=== PATIENT | female | born 1940 | race Caucasian/White ===

== ENCOUNTER 2017-03-02 23:55 | Emergency (ER) | payer MEDICARE, OTHER ==
--- NOTE | ~2017-03-02 | ER ---
PATIENT'S NAME: YOON DOTY [facility] AGE: 76 Y [address] ROOM: [place] [address] LOCATION: ED ADMIT DATE: 03/02/2017 ER/Outpatient Report DISCHARGE DATE: 03/03/2017 FAMILY PHYSICIAN: Sherly Christianson APRN ATTENDING PHYSICIAN: Elidia Oden Time of Arrival: 2355 hours. Time Seen: 0008 hours. IDENTIFICATION: A 76-year-old female. CHIEF COMPLAINT: Pain. HISTORY OF PRESENT ILLNESS: The patient presents complaining of epigastric pain and left flank pain. She describes it as a pressure feeling that is worse with a deep breath. She has some nausea. No vomiting. No diarrhea. No constipation. Last bowel movement was earlier this evening. The pain started at 2:00 p.m., then got better and then got worse again around 9:00 p.m. No dysuria. No increased frequency of urination. PAST MEDICAL HISTORY: ALLERGIES: TO CELEBREX. CURRENT MEDICATIONS: 1. Acetaminophen 325 mg 2 tablets every 4 hours as needed. 2. Albuterol 2 times daily. 3. Alprazolam 0.25 mg t.i.d. 4. Aspirin 81 mg daily. 5. Docusate 100 mg b.i.d. 6. Ferrous sulfate 325 mg 3 times daily. 7. Guaifenesin 200 mg 2 times daily. 8. Humalog sliding scale. 9. Bystolic 5 mg half tablet daily. 10. Zoloft 50 mg daily. 11. Spiriva daily. 12. Torsemide 20 mg 2 tablets daily. 13. vitamins. 14. Atorvastatin 80 mg daily. 15. Omeprazole, which is not on her list 1 daily. PATIENT'S NAME: YOON DOTY [facility] AGE: 76 Y [address] ROOM: [place], [place] [address] LOCATION: [facility] ADMIT DATE: 03/02/2017 ER/Outpatient Report DISCHARGE DATE: 03/03/2017 FAMILY PHYSICIAN: Sherly Christianson APRN ATTENDING PHYSICIAN: Elidia Oden MEDICAL PROBLEMS: Peptic ulcer disease; diabetes mellitus, insulin requiring; COPD; heart disease; hypertension; anxiety. PRIOR SURGERIES: CABG, carotid endarterectomies, bilateral fem-pop bypass, and cholecystectomy. SOCIAL HISTORY: The patient lives in [place]. She is currently staying with her son maryjane in [facility]. Tobacco use, quit 6 years ago. Alcohol use, denies. Drug use, denies. REVIEW OF SYSTEMS: All systems reviewed and negative other than what is noted in the HPI. FAMILY HISTORY: No pertinent family history identified. PHYSICAL EXAMINATION: VITAL SIGNS: Height 5 feet 1 inch, weight 63.4 kg, blood pressure 195/101, pulse 85, respirations 24, temperature 98.7, sats 94%. Recheck blood pressure 122/76. GENERAL: A 76-year-old female, in no acute distress. Pain is 5/10 on the pain scale. HEAD: Normocephalic, atraumatic. EARS: TMs translucent, AU. EYES: Pupils equal and reactive to light and accommodation. Extraocular movements intact. NOSE: Mucosa pink. No lesions or drainage. MOUTH: No lesions. Pharynx benign. NECK: Supple. No lymphadenopathy. LUNGS: Clear to auscultation. Breath sounds are equal. No rhonchi, wheezes, or rales. HEART: Regular rate and rhythm. No murmur, rub, or gallop. ABDOMEN: Bowel sounds present. Soft, nondistended, tender to palpation of epigastric. No CVA tenderness. SKIN: [place], warm, and dry. No lesions or rashes noted. NEURO: The patient is alert and oriented x4. Cranial nerves 2 through 12 grossly intact. Motor strength 5/5 throughout. Sensation is intact to light touch. Pulses are equal bilaterally. LOWER EXTREMITIES: The patient was given a GI cocktail with improvement of her epigastric pain. The discomfort in her left flank persisted and she did receive fentanyl with improvement of that pain. DIAGNOSTIC DATA: EKG at 0012 hours, normal sinus rhythm at 77 beats per minute. No acute ST PATIENT'S NAME: YOON DOTY [facility] AGE: 76 Y [address] ROOM: [place] [address] LOCATION: [facility] ADMIT DATE: 03/02/2017 ER/Outpatient Report DISCHARGE DATE: 03/03/2017 FAMILY PHYSICIAN: Sherly Christianson APRN ATTENDING PHYSICIAN: Elidia Oden A elevation or depression. She has a Q-wave noted in lead V2 and lead 3. She has nonspecific ST-T wave changes. Repeat EKG at 02:11 normal sinus rhythm at 62 beats per minute. No acute ST elevation or depression and no significant change. She has nonspecific ST-T wave changes, but no significant change when compared to previous EKG. UA: Specific gravity 1.010, pH 6.5, 20-50 white cells, negative red cells, 0-2 epithelial cells, rare bacteria. Urine culture pending. CT abdomen and pelvis without contrast, no acute intraabdominal or pelvic process seen to account for pain. Multiple bilateral renal artery calcifications are noted and a few additional nonobstructive calculi, small left pleural effusion, and associated volume loss. Chest x-ray, no acute process. Pending Radiology over-read. Sodium 138, potassium 4.0, chloride 103, CO2 of 27, BUN 57, creatinine 1.9. No baseline available for comparison. Blood sugar 127. Liver enzymes normal. Magnesium 2.5, amylase 64, lipase 153, CPK 93, CK MB 0.7, troponin I less than 0.040. Hemoglobin 12.1, hematocrit 37.9, platelets 228, white count 8.5, normal differential. INR 0.95. Repeat cardiac enzymes at 02:20 CPK 83, CK-MB 0.7, troponin I less than 0.040. The patient was given 1 g of Rocephin IV for UTI. IMPRESSION: 1. Left flank pain and urinary tract infection. 2. Epigastric pain. PLAN: Increase omeprazole to twice daily. [place] for severe pain 5/325 one p.o. q.4- 6 hours p.r.n. severe pain, dispensed 15 with 0 refills. Keflex 500 mg t.i.d. for 5 days. Urine has been cultured. Follow up with Shrely Christianson in , Thursday to recheck her urine and follow up on her urine culture results. She will follow up sooner if any problems or concerns. The patient and her son understand and agree, and all questions have been answered. ELIDIA ODEN MD CAR/jonol /[id number] d: 03/03/17 0341 t: 03/05/17 0658, OUTPATIENT REPORT
[2017-03-03 00:27] LABS: BASOPHIL % 0.4 %; EOSINOPHIL # 0.2 K/uL (0.0-0.5); EOSINOPHIL % 1.9 %; HEMATOCRIT 37.9 % (33.0-46.0); HEMOGLOBIN 12.1 g/dL (10.0-15.0); IMMATURE GRANULOCYTE % 0.2 %; LYMPHOCYTE # 1.5 K/uL (0.8-4.0); LYMPHOCYTE % 17.7 %; MCHC 31.9 gm/dL (32.0-36.5); MCV 87.7 fl (83.0-98.0); MONOCYTE # 0.6 K/uL (0.0-1.0); MONOCYTE % 6.8 %; MPV 9.9 fl (9.4-12.4); NEUTROPHIL # (ANC) 6.2 K/uL (1.8-7.8); NRBC % 0 /100WBC (0-0.00); PLATELET COUNT 228 K/uL (150-450); RBC 4.32 M/uL (3.50-5.50); RDW-CV 14.9 % (11.9-14.6); WBC 8.5 K/uL (4.0-11.0)
[2017-03-03 00:38] LABS: INR - (THERAPEUTIC) 0.95 (0.92-1.07); PTT 30 SECONDS (25-32)
[2017-03-03 00:44] LABS: ALBUMIN 3.5 gm/dL (3.5-5.0); ALK PHOS 102 IU/L (33-138); ALT 25 IU/L (12-78); AST 20 IU/L (10-40); CALCIUM 8.6 mg/dL (8.5-10.5); CHLORIDE 103 mMol/L (96-110); CO2 27 mMol/L (22-32); CPK 93 IU/L (21-215); CREATININE 1.9 mg/dL (0.5-1.1); ESTIMATED GFR (MDRD EQUATION) 26; MAGNESIUM 2.5 mg/dL (1.8-2.6); SODIUM 138 mMol/L (135-145); TOTAL BILIRUBIN 0.3 mg/dL (0.0-1.5)
[2017-03-03 00:46] LABS: BLOOD UREA NITROGEN 57 mg/dL (6-24)
[2017-03-03 01:45] LABS: BILIRUBIN URINE NEGATIVE (NEGATIVE); BLOOD URINE NEGATIVE /UL (NEGATIVE); COLOR URINE YELLOW (YELLOW); GLUCOSE URINE NEGATIVE (NEGATIVE); KETONE URINE NEGATIVE (NEGATIVE); LEUKOCYTES URINE 500 /UL (NEGATIVE); NITRITE URINE NEGATIVE (NEGATIVE); PH URINE 6.5 (4.0-8.0); PROTEIN URINE NEGATIVE (NEGATIVE); TURBIDITY URINE CLEAR (CLEAR); UROBILINOGEN URINE NORMAL (NORMAL)
[2017-03-03 01:57] LABS: BACTERIA URINE RARE (NEGATIVE); EPITHELIAL URINE 0-2 #/HPF (NEGATIVE); RBC URINE NEGATIVE #/HPF (NEGATIVE); WBC URINE 20-50 #/HPF (NEGATIVE)
[2017-03-03 02:39] LABS: CPK 83 IU/L (21-215)
== END 2017-03-03 02:44 | disposition disaster alternative care site (69) ==
LOC: GMED 23:55
PROVIDERS: Family Medicine
DX: N39.0 Urinary tract infection, site not specified (principal); R10.13 Epigastric pain; N20.0 Calculus of kidney; K55.1 Chronic vascular disorders of intestine; E11.9 Type 2 diabetes mellitus without complications; I11.9 Hypertensive heart disease without heart failure; I51.9 Heart disease, unspecified; F41.9 Anxiety disorder, unspecified; J44.9 Chronic obstructive pulmonary disease, unspecified; Z95.828 Presence of other vascular implants and grafts; Z79.4 Long term (current) use of insulin; Z79.899 Other long term (current) drug therapy; Z90.89 Acquired absence of other organs; Z95.820 Peripheral vascular angioplasty status with implants and grafts; Z98.890 Other specified postprocedural states; Z87.11 Personal history of peptic ulcer disease; Z88.6 Allergy status to analgesic agent; Z79.82 Long term (current) use of aspirin; Z87.891 Personal history of nicotine dependence
CPT/HCPCS: J0696; J2405; J3010